=== PATIENT | female | born 1950 | race African-American/Black ===

== ENCOUNTER 2017-01-16 11:40 | Emergency (ER) | payer MEDICARE ==
[2017-01-16 11:46] VITALS: BMI 31.8
--- NOTE | 2017-01-16 12:05 | PDOC ---
History of Present Illness - General Chief Complaint: Asthma Stated Complaint: ASTHMA ATTACK Time Seen by Provider: 01/16/17 12:00 History Source: Patient Exam Limitations: No Limitations - History of Present Illness Initial Comments: 01/16/17 12:02 CHIEF COMPLAINT: Shortness of breath HISTORY OF PRESENT ILLNESS: This is a 66 year old female with a history of asthma and COPD (on albuterol MDI and Symbicort) who presents complaining of shortness of breath, wheezing, and cough productive of yellow sputum. Symptoms began about a month ago, and she was given a course of prednisone by her PCP which initially helped. Symptoms then recurred, and then she was given a course of Levaquin about 1.5 weeks ago, which she also completed. Former smoker, quit 35 years ago REVIEW OF SYSTEMS: GENERAL/CONSTITUTIONAL: No fever or chills. No weakness. No weight change. HEAD, EYES, EARS, NOSE AND THROAT: No change in vision. No ear pain or discharge. No sore throat. CARDIOVASCULAR: No chest pain or palpitations. RESPIRATORY: No cough, wheezing, or shortness of breath. GASTROINTESTINAL: No nausea, vomiting, diarrhea or constipation. GENITOURINARY: No dysuria, frequency, or change in urination. MUSCULOSKELETAL: No joint or muscle swelling or pain. No neck or back pain. SKIN: No rash or easy bruising. NEUROLOGIC: No headache, vertigo, loss of consciousness, or loss of sensation. PSYCHIATRIC: No depression or anxiety. ENDOCRINE: No increased thirst. No abnormal weight change. HEMATOLOGIC/LYMPHATIC: No anemia, easy bleeding, or history of blood clots. ALLERGIC/IMMUNOLOGIC: No hives or skin allergy. No latex allergy. PHYSICAL EXAM: GENERAL: The patient is awake, alert, and fully oriented, in no acute distress. HEAD: Normal with no signs of trauma. ENT: Pupils equal, round and reactive to light, extraocular movements intact, sclera anicteric, conjunctiva clear. Neck supple. LUNGS: Clear to auscultation bilaterally. Normal excursion. No respiratory distress or use of accessory muscles. CV: RRR, S1/S2, no MRG. Cap refill < 2 sec. ABDOMEN: Soft, non-distended, non-tender. EXTREMITIES: Normal range of motion, no edema. NEUROLOGICAL: Normal speech, normal gait. CN II-XII grossly intact. PSYCH: Normal mood, normal affect. SKIN: Warm, dry, normal turgor, no rashes or lesions noted. Past History - Past Medical History Allergies/Adverse Reactions: Allergies Allergy/AdvReac Type Severity Reaction Status Date / Time Penicillins Allergy Swelling Verified 01/16/17 11:42 Sulfa (Sulfonamide Allergy Swelling Verified 01/16/17 11:42 Antibiotics) BEEF Allergy Uncoded 01/16/17 11:42 SHRIMP Allergy Uncoded 01/16/17 11:42 Home Medications: Ambulatory Orders Albuterol 0.083% Nebulizer Amanda [Ventolin 0.083% Nebulizer Soln -] 1 neb NEB Q4H #30 amp 03/22/16 Montelukast Na [Singulair -] 10 mg PO HS #0 tablet 03/22/16 Budesonide/Formeterol Fumarate [SYMBICORT 160/4.5mcg -] 1 inh PO BID 01/16/17 Asthma: Yes COPD: Yes - Surgical History Abdominal Surgery: Yes (ovarian sx) - Immunization History Immunization Up to Date: Yes - Psycho/Social/Smoking Cessation Hx Anxiety: No Suicidal Ideation: No Smoking History: Former smoker Have you smoked in the past 12 months: No Information on smoking cessation initiated: No Hx Alcohol Use: No Drug/Substance Use Hx: No Substance Use Type: None Hx Substance Use Treatment: No *Physical Exam - Vital Signs Last Vital Signs Temp Pulse Resp BP Pulse Ox 92 H 22 145/98 97 01/16/17 11:42 01/16/17 11:42 01/16/17 11:42 01/16/17 11:42 Medical Decision Making - Medical Decision Making 01/16/17 14:09 A/P: 66 year old female with asthma exacerbation and possible superimposed bronchitis vs. PNA. 1. DuoNeb followed by albuterol nebs 2. Solu-Medrol 125mg IVP 3. CXR 4. Re-assess CXR: No infiltrate Patient re-evaluated and wheezing resolved, feels better and would like to go home. Followup instructions and return precautions reviewed. *DC/Admit/Observation/Transfer Diagnosis at time of Disposition: Bronchitis, COPD exacerbation - Discharge Dispostion Disposition: HOME Condition at time of disposition: Stable Admit: No - Referrals Referrals: Nora Phelan MD [Staff Physician] - - Patient Instructions Printed Discharge Instructions: DI for Chronic Obstructive Pulmonary Disease, DI for Acute Bronchitis Additional Instructions: -Continue using your albuterol nebulizer -Add Medrol and Azithromycin as prescribed -Follow up with Dr. Phelan this week -Return for difficulty breathing or any other concerning symptoms
[2017-01-16] MEDS ORDERED: ALBUTEROL SO4 2.5/IPRATROPIUM 0.5 INH SOL 3 ML VIAL.NEB. NEB ONE ×2 (12:10→12:16)
[2017-01-16] MEDS ORDERED: methylPREDNISolone NA SUCC 125 MG/2 ML VIAL IVPB ONE (12:10)
[2017-01-16] MEDS ORDERED: methylPREDNISolone NA SUCC 125 MG/2 ML VIAL ONE (12:28)
[2017-01-16] MEDS: ALBUTEROL SO4 0.083% IH SOL 2.5 MG/3 ML VIAL.NEB. NEB SCH ×4 (12:30→13:16)
[2017-01-16] MEDS ORDERED: ALBUTEROL SO4 0.083% IH SOL 2.5 MG/3 ML VIAL.NEB. NEB ONE (12:32)
[2017-01-16 14:22] VITALS: BP 123/74; PULSE 84
== END 2017-01-16 14:23 | disposition home or self-care (01) ==
LOC: JER 11:40
PROC: 3E0F7GC Introduction of Other Therapeutic Substance into Respiratory Tract, Via Natural or Artificial Opening (ICD-10-PCS; principal; 2017-01-16)
PROC: 3E0F7GC Introduction of Other Therapeutic Substance into Respiratory Tract, Via Natural or Artificial Opening (ICD-10-PCS; 2017-01-16)
PROC: 3E0333Z Introduction of Anti-inflammatory into Peripheral Vein, Percutaneous Approach (ICD-10-PCS; 2017-01-16)
DX: R06.02 Shortness of breath (principal); J44.1 Chronic obstructive pulmonary disease with (acute) exacerbation; J20.9 Acute bronchitis, unspecified
CPT/HCPCS: 71020-TC; 94640; 96374; 99282-25

== ENCOUNTER 2017-02-20 11:12 | Emergency (ER) | payer MEDICARE ==
[2017-02-20 11:31] VITALS: BMI 31.8
--- NOTE | 2017-02-20 11:39 | PDOC ---
History of Present Illness - General History Source: Patient Exam Limitations: No Limitations - History of Present Illness Initial Comments: 02/20/17 11:57 The patient is a 66 year old female with a significant PMHx of COPD, asthma who presents to the ED with coughing and SOB today. 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 The classroom across the cortes was burning incense and she began coughing and experienced SOB. She reports that she went back to her classroom and used her albuterol pump, but could not get it under control. She reports that at the time , she had chest tightness, and was coughing up cloudy white phlegm. She reports that she has had similar symptoms multiple times, the last time being about 2 months ago because of the heat. She currently denies chest pain, nausea, vomiting but she reports slight SOB still. She also reports intermittent lower leg swelling for the past 2 years. After her last hospitalization, her doctor told her to see a residential fee appraiser to be sure there were no cardiac issues. Her appointment is next month. PCP: Dr. Phelan Preventive Maintenance Engineer: Dr. Emmanuel Allergies: penicillin, sulfa <Florina Meyers - Last Filed: 02/20/17 13:59> <Greg Dow - Last Filed: 02/20/17 14:50> - General Stated Complaint: SOB Past History <Florina Meyers - Last Filed: 02/20/17 13:59> - Past Medical History Asthma: Yes COPD: Yes - Surgical History Abdominal Surgery: Yes (ovarian sx) - Immunization History Immunization Up to Date: Yes - Psycho/Social/Smoking Cessation Hx Anxiety: No Suicidal Ideation: No Smoking History: Former smoker Have you smoked in the past 12 months: No Information on smoking cessation initiated: No Hx Alcohol Use: No Drug/Substance Use Hx: No Substance Use Type: None Hx Substance Use Treatment: No <Greg Dow - Last Filed: 02/20/17 14:50> - Past Medical History Allergies/Adverse Reactions: Allergies Allergy/AdvReac Type Severity Reaction Status Date / Time Penicillins Allergy Swelling Verified 02/20/17 11:14 Sulfa (Sulfonamide Allergy Swelling Verified 02/20/17 11:14 Antibiotics) BEEF Allergy Uncoded 02/20/17 11:14 SHRIMP Allergy Uncoded 02/20/17 11:14 Home Medications: Ambulatory Orders Albuterol 0.083% Nebulizer Amanda [Ventolin 0.083% Nebulizer Soln -] 1 neb NEB Q4H #30 amp 03/22/16 Budesonide/Formeterol Fumarate [SYMBICORT 160/4.5mcg -] 1 inh PO BID 01/16/17 Albuterol Sulfate Inhaler - [Ventolin HFA Inhaler -] 1 - 2 inh PO Q4H #1 inhaler 02/20/17 Azithromycin [Zithromax -] 250 mg PO DAILY #10 tab 02/20/17 Methylprednisolone [Medrol Dose Eugenio] 4 mg PO ASDIR #21 tablet 02/20/17 Methylprednisolone [Medrol Dose Eugenio] 10 mg PO ASDIR 02/20/17 Review of Systems - Review of Systems Able to Perform ROS?: Yes Comments:: 02/20/17 11:57 GENERAL/CONSTITUTIONAL: No fever or chills. No weakness. HEAD, EYES, EARS, NOSE AND THROAT: No change in vision. No ear pain or discharge. No sore throat. CARDIOVASCULAR: (+) chest tightness, shortness of breath, lower leg swelling. RESPIRATORY: (+) cough, No wheezing, or hemoptysis. GASTROINTESTINAL: No nausea, vomiting, diarrhea or constipation. GENITOURINARY: No dysuria, frequency, or change in urination. MUSCULOSKELETAL: No joint or muscle swelling or pain. No neck or back pain. SKIN: No rash NEUROLOGIC: No headache, vertigo, loss of consciousness, or change in strength/ sensation. ENDOCRINE: No increased thirst. No abnormal weight change. HEMATOLOGIC/LYMPHATIC: No anemia, easy bleeding, or history of blood clots. ALLERGIC/IMMUNOLOGIC: No hives or skin allergy. <Florina Meyers - Last Filed: 02/20/17 13:59> *Physical Exam - Vital Signs Last Vital Signs Temp Pulse Resp BP Pulse Ox 97.7 F 78 22 147/89 97 02/20/17 11:15 02/20/17 11:46 02/20/17 11:15 02/20/17 11:15 02/20/17 11:46 - Physical Exam Comments: 02/20/17 11:57 GENERAL: Awake, alert, and fully oriented, in no acute distress HEAD: No signs of trauma EYES: PERRLA, EOMI, sclera anicteric, conjunctiva clear ENT: Auricles normal inspection, hearing grossly normal, nares patent, oropharynx clear without exudates. Moist mucosa NECK: Normal ROM, supple, no lymphadenopathy, JVD, or masses LUNGS: Breath sounds equal, clear to auscultation bilaterally. No wheezes, and no crackles HEART: Regular rate and rhythm, normal S1 and S2, no murmurs, rubs or gallops ABDOMEN: Soft, nontender, normoactive bowel sounds. No guarding, no rebound. No masses EXTREMITIES: Normal range of motion, no edema. No clubbing or cyanosis. No cords, erythema, or tenderness NEUROLOGICAL: Cranial nerves II through XII grossly intact. Normal speech, normal gait SKIN: Warm, Dry, normal turgor, no rashes or lesions noted. <Florina Meyers - Last Filed: 02/20/17 13:59> - Vital Signs Last Vital Signs Temp Pulse Resp BP Pulse Ox 97.7 F 78 22 147/89 100 02/20/17 11:15 02/20/17 11:15 02/20/17 11:15 02/20/17 11:15 02/20/17 11:15 <Greg Dow - Last Filed: 02/20/17 14:50> Heart Score/ECG Review #1 02/20/17 13:59 Normal sinus rhythm at 65 bpm. Possible left atrial enlargement. Septal infarct , age undetermined. <Florina Meyers - Last Filed: 02/20/17 13:59> ED Treatment Course - LABORATORY CBC & Chemistry Diagram: 02/20/17 12:23 02/20/17 12:23 - RADIOLOGY Radiograph Interpretation: 02/20/17 13:26 Chest X-Ray Reported by: Dr. Yadiel Uriarte Impressiono: No evidence of active pulmonary disease. <Florina Meyers - Last Filed: 02/20/17 13:59> - LABORATORY CBC & Chemistry Diagram: 02/20/17 12:23 02/20/17 12:23 <Greg Dow - Last Filed: 02/20/17 14:50> *DC/Admit/Observation/Transfer - Attestations Scribe Attestion: 02/20/17 11:57 Documentation prepared by Florina Meyers, acting as medical office administrator for Greg Dow DO. <Florina Meyers - Last Filed: 02/20/17 13:59> - Discharge Dispostion Admit: No - Attestations Physician Attestion: 02/20/17 11:39 I, Dr. Greg Dow, attest that this document has been prepared under my direction and personally reviewed by me in its entirety. I further attest, that it accurately reflects all work, treatment, procedures and medical decision -making performed by me. <Greg Dow - Last Filed: 02/20/17 14:50> Diagnosis at time of Disposition: COPD (chronic obstructive pulmonary disease) with acute bronchitis - Discharge Dispostion Condition at time of disposition: Good - Prescriptions Prescriptions: Methylprednisolone [Medrol Dose Eugenio] 4 mg PO ASDIR #21 tablet Albuterol Sulfate Inhaler - [Ventolin HFA Inhaler -] 1 - 2 inh PO Q4H #1 inhaler Azithromycin [Zithromax -] 250 mg PO DAILY #10 tab - Referrals Referrals: Nora Phelan MD [Primary Care Provider] - - Patient Instructions Printed Discharge Instructions: DI for Acute Bronchitis Additional Instructions: Mrs Enamorado- Use the inhaler as needed, return to us if worse, see your doctor next week. Best- Dr. Greg Dow
[2017-02-20] MEDS ORDERED: ALBUTEROL SO4 2.5/IPRATROPIUM 0.5 INH SOL 3 ML VIAL.NEB. NEB ONE ×2 (11:56→12:11)
[2017-02-20] MEDS ORDERED: ALBUTEROL SO4 0.083% IH SOL 2.5 MG/3 ML VIAL.NEB. NEB ONE ×2 (11:56→12:11)
[2017-02-20] MEDS ORDERED: methylPREDNISolone NA SUCC 125 MG/2 ML VIAL IVPB ONE (11:56)
[2017-02-20] MEDS ORDERED: methylPREDNISolone NA SUCC 125 MG/2 ML VIAL ONE (12:12)
[2017-02-20 12:37] LABS: BASOPHIL 0.2 % (0-2.0); MCH 27.5 pg (25.7-33.7); MCHC 32.8 g/dl (32.0-36.0); MEAN CELL VOLUME 83.8 fl (80-96); MEAN PLT VOLUME 8.7 fl (7.5-11.1); NEUTROPHILS 44.3 % (42.8-82.8); PLATELET COUNT 254 K/MM3 (134-434); RDW 14.4 % (11.6-15.6); WHITE BLOOD COUNT 9.5 K/mm3 (4.0-10.0)
[2017-02-20 12:49] LABS: INR 1.04 (0.82-1.09); PROTHROMBIN TIME (PATIENT) 11.4 SEC (9.98-11.88)
[2017-02-20 13:00] LABS: ALBUMIN 3.1 g/dl (3.4-5.0); ANION GAP 4 (8-16); BILIRUBIN,TOTAL 0.5 mg/dL (0.2-1.0); CALCIUM 8.9 mg/dL (8.5-10.1); CO2 36 mmol/L (21-32); CREATININE 0.8 mg/dL (0.55-1.02); GLUCOSE,RANDOM 91 mg/dL (74-106); SGPT/ALT 51 U/L (12-78); TOT PROT 6.6 g/dl (6.4-8.2)
[2017-02-20 13:02] LABS: ALK PHOS 156 U/L (45-117); TROPONIN I < 0.02 ng/ml (0.00-0.05)
[2017-02-20 13:08] LABS: SGOT/AST 42 U/L (15-37)
[2017-02-20 15:04] VITALS: BP 144/78; PULSE 80; TEMP 98.4
--- NOTE | 2017-02-21 20:56 | EKG ---
Test Reason : Blood Pressure : / mmHG Vent. Rate : 065 BPM Atrial Rate : 065 BPM P-R Int : 126 ms QRS Dur : 078 ms QT Int : 422 ms P-R-T Axes : 055 036 028 degrees QTc Int : 438 ms NORMAL SINUS RHYTHM POSSIBLE LEFT ATRIAL ENLARGEMENT SLOW R WAVE PROGRESSION V1-V3 PROLONGED QTC NONSPECIFIC T WAVE ABNORMALITY ABNORMAL ECG WHEN COMPARED WITH ECG OF 17-MAR-2016 10:16, NONSPECIFIC T WAVE ABNORMALITY NOW EVIDENT IN ANTERIOR LEADS REPEAT EKG IF CLINICALLY INDICATED Confirmed by MAGALIS DOWD MD ([id number]) on 02/21/2017 8:56:43 PM Referred By: Confirmed By:MAGALIS DOWD MD
== END 2017-02-20 15:04 | disposition home or self-care (01) ==
LOC: JER 11:12
PROC: 3E0F7GC Introduction of Other Therapeutic Substance into Respiratory Tract, Via Natural or Artificial Opening (ICD-10-PCS; principal; 2017-02-20)
PROC: 3E0F7GC Introduction of Other Therapeutic Substance into Respiratory Tract, Via Natural or Artificial Opening (ICD-10-PCS; 2017-02-20)
PROC: 3E0333Z Introduction of Anti-inflammatory into Peripheral Vein, Percutaneous Approach (ICD-10-PCS; 2017-02-20)
DX: J44.1 Chronic obstructive pulmonary disease with (acute) exacerbation (principal); J20.9 Acute bronchitis, unspecified
CPT/HCPCS: 36415; 71020-TC; 80053; 82550; 83880; 84484; 85025; 85610; 93005; 93010; 94640; 96374; 99285-25

== ENCOUNTER 2017-07-30 11:54 | Emergency (ER) | payer MEDICARE, OTHER ==
--- NOTE | 2017-07-30 12:03 | PDOC ---
History of Present Illness - General Chief Complaint: Asthma Stated Complaint: SOB Time Seen by Provider: 07/30/17 12:00 History Source: Patient - History of Present Illness Initial Comments: 07/30/17 12:14 The patient is a 66 year old female with a significant PMHx of COPD, asthma who presents to the ED by ambulance after experiencing shortness of breath while outside cleaning the snow off her car. She then asked a passerby to call an ambulance. Given 1 nebulizer in the ambulance, saturating at 100% the whole time.. Now feels better. 07/30/17 14:05 Past History - Past Medical History Allergies/Adverse Reactions: Allergies Allergy/AdvReac Type Severity Reaction Status Date / Time Penicillins Allergy Swelling Verified 07/30/17 12:36 Sulfa (Sulfonamide Allergy Swelling Verified 07/30/17 12:36 Antibiotics) BEEF Allergy Uncoded 07/30/17 12:36 SHRIMP Allergy Uncoded 07/30/17 12:36 Home Medications: Ambulatory Orders Albuterol 0.083% Nebulizer Amanda [Ventolin 0.083% Nebulizer Soln -] 1 neb NEB Q4H #30 amp 03/22/16 Budesonide/Formeterol Fumarate [SYMBICORT 160/4.5mcg -] 1 inh PO BID 01/16/17 Albuterol Sulfate Inhaler - [Ventolin HFA Inhaler -] 1 - 2 inh PO Q4H #1 inhaler 02/20/17 Azithromycin [Zithromax -] 250 mg PO DAILY #10 tab 02/20/17 Methylprednisolone [Medrol Dose Eugenio] 4 mg PO ASDIR #21 tablet 02/20/17 Methylprednisolone [Medrol Dose Eugenio] 10 mg PO ASDIR 02/20/17 Methylprednisolone [Medrol Dose Eugenio] 4 mg PO ASDIR #21 tablet 07/30/17 Asthma: Yes COPD: Yes - Surgical History Abdominal Surgery: Yes (ovarian sx) - Immunization History Immunization Up to Date: Yes - Suicide/Smoking/Psychosocial Hx Smoking History: Former smoker Have you smoked in the past 12 months: No Hx Alcohol Use: No Drug/Substance Use Hx: No Substance Use Type: None Hx Substance Use Treatment: No Review of Systems - Review of Systems Able to Perform ROS?: Yes Is the patient limited Lithuanian proficient: No Constitutional: No: Symptoms Reported HEENTM: No: Symptoms Reported Respiratory: Yes: Cough, Shortness of Breath. No: Wheezing Cardiac (ROS): No: Symptoms Reported ABD/GI: Yes: Diarrhea : No: Symptoms Reported Musculoskeletal: No: Symptoms Reported Integumentary: No: Symptoms Reported Neurological: No: Symptoms reported Endocrine: No: Symptoms Reported All Other Systems: Reviewed and Negative *Physical Exam - Physical Exam General Appearance: Yes: Nourished, Appropriately Dressed, Apparent Distress HEENT: positive: EOMI, THEO, Normal ENT Inspection Neck: positive: Trachea midline. negative: Tender Respiratory/Chest: positive: Lungs Clear, Normal Breath Sounds. negative: Chest Tender, Wheezing Cardiovascular: positive: Regular Rhythm, Regular Rate, S1, S2 Vascular Pulses: Dorsalis-Pedis (R): 2+, Doralis-Pedis (L): 2+ Gastrointestinal/Abdominal: positive: Normal Bowel Sounds, Flat, Soft. negative : Tender Musculoskeletal: positive: Normal Inspection Extremity: positive: Normal Capillary Refill, Normal Inspection Neurologic: positive: Fully Oriented, Normal Mood/Affect Medical Decision Making - Medical Decision Making 07/30/17 14:01 Given treatment of duoneb and 60mg prednisone in the Er. No wheezes. Coughing resolved Ok to be discharged. *DC/Admit/Observation/Transfer Diagnosis at time of Disposition: Asthma attack - Discharge Dispostion Disposition: HOME Admit: No - Prescriptions Prescriptions: Methylprednisolone [Medrol Dose Eugenio] 4 mg PO ASDIR #21 tablet - Referrals - Patient Instructions Printed Discharge Instructions: Asthma -- Adult Additional Instructions: Come back to the Emergency Department for any new, concerning or worsening symptoms. Follow up with your primary doctor August 01 2017 - Post Discharge Activity
[2017-07-30] MEDS ORDERED: ALBUTEROL SO4 2.5/IPRATROPIUM 0.5 INH SOL 3 ML VIAL.NEB. NEB ONE (12:30)
[2017-07-30 12:36] VITALS: TEMP 97.6; BMI 32.5
[2017-07-30] MEDS ORDERED: predniSONE 20 MG TABLET (UD) PO ONE (12:42)
[2017-07-30] MEDS ORDERED: predniSONE 20 MG TABLET (UD) ONE (12:49)
[2017-07-30 14:11] VITALS: BP 127/77; PULSE 81
== END 2017-07-30 14:12 | disposition home or self-care (01) ==
LOC: JER 11:54
PROC: 3E0F7GC Introduction of Other Therapeutic Substance into Respiratory Tract, Via Natural or Artificial Opening (ICD-10-PCS; principal; 2017-07-30)
DX: J45.901 Unspecified asthma with (acute) exacerbation (principal); J44.9 Chronic obstructive pulmonary disease, unspecified; Z87.891 Personal history of nicotine dependence
CPT/HCPCS: 71010-TC; 94640; 99281-25

== ENCOUNTER 2019-04-08 10:51 | Emergency (ER) | payer MEDICARE, OTHER ==
[2019-04-08 11:21] VITALS: BP 157/93; PULSE 66; TEMP 98.4; BMI 31.8
[2019-04-08] MEDS ORDERED: KETOROLAC TROMETHAMINE 60 MG/2 ML VIAL IM ONE (12:48)
[2019-04-08] MEDS ORDERED: KETOROLAC TROMETHAMINE 60 MG/2 ML VIAL ONE (12:49)
--- NOTE | 2019-04-08 12:54 | PDOC ---
History of Present Illness - General Chief Complaint: Pain, Acute Stated Complaint: LT SHOULER PAIN NUMBNESS DOWN THE ARM Time Seen by Provider: 04/08/19 11:59 - History of Present Illness Initial Comments: 04/08/19 12:49 68 y/o F with a PMH of HTN and COPD presents for evaluation of L sided neck pain with l UE radicular symptoms. No systemic symptoms Past History - Past Medical History Allergies/Adverse Reactions: Allergies Allergy/AdvReac Type Severity Reaction Status Date / Time Penicillins Allergy Swelling Verified 04/08/19 11:24 Sulfa (Sulfonamide Allergy Swelling Verified 04/08/19 11:24 Antibiotics) BEEF Allergy Uncoded 04/08/19 11:24 SHRIMP Allergy Uncoded 04/08/19 11:24 Home Medications: Ambulatory Orders Albuterol 0.083% Nebulizer Amanda [Ventolin 0.083% Nebulizer Soln -] 1 neb NEB Q4H #30 amp 03/22/16 Budesonide/Formeterol Fumarate [SYMBICORT 160/4.5mcg -] 1 inh PO BID 01/16/17 Albuterol Sulfate Inhaler - [Ventolin HFA Inhaler -] 1 - 2 inh PO Q4H #1 inhaler 02/20/17 Azithromycin [Zithromax -] 250 mg PO DAILY #10 tab 02/20/17 Methylprednisolone [Medrol Dose Eugenio] 4 mg PO ASDIR #21 tablet 02/20/17 Methylprednisolone [Medrol Dose Eugenio] 10 mg PO ASDIR 02/20/17 Methylprednisolone [Medrol Dose Eugenio] 4 mg PO ASDIR #21 tablet 07/30/17 Cyclobenzaprine HCl [Flexeril 10 mg] 10 mg PO HS PRN #10 tablet 04/08/19 Asthma: Yes COPD: Yes HTN: Yes - Surgical History Abdominal Surgery: Yes (ovarian sx) - Immunization History Immunization Up to Date: Yes - Suicide/Smoking/Psychosocial Hx Smoking History: Never smoked Have you smoked in the past 12 months: No Hx Alcohol Use: No Drug/Substance Use Hx: No Substance Use Type: None Hx Substance Use Treatment: No Review of Systems - Review of Systems Musculoskeletal: Yes: Neck Pain *Physical Exam - Vital Signs Last Vital Signs Temp Pulse Resp BP Pulse Ox 98.4 F 66 16 157/93 98 04/08/19 11:18 04/08/19 11:18 04/08/19 11:18 04/08/19 11:18 04/08/19 11:18 - Physical Exam Comments: 04/08/19 12:53 Cervical spine skin color and temperature are normal; range of motion decreased. 5 out of 5 strength bilateral upper extremities. There is no midline tenderness, there is moderate bilateral paracervical muscular spasm and tenderness. NVID free of any gross sensory or motor deficits Positive Spuruling maneuver producing L UE radicular symptoms Medical Decision Making - Medical Decision Making 04/08/19 12:54 Pt already on prednisone for COPD, will treat with Flexeril for spasm and have her f.u w neurosurgery. *DC/Admit/Observation/Transfer Diagnosis at time of Disposition: Cervical radiculopathy - Discharge Dispostion Disposition: HOME Condition at time of disposition: Stable Decision to Admit order: No - Referrals Referrals: Nora Phelan MD [Primary Care Provider] - Teofilo Morris MD, FAANS [Staff Physician] - - Patient Instructions Additional Instructions: Please take the muscle relaxer as directed. One tablet before bed, it will make you sleepy. Return to the emergency room should symptoms worsen and follow up with neurosurgery without fail in 1-2 days for further evaluation and treatment options. You may take Tylenol as directed for additional pain control. - Post Discharge Activity
--- NOTE | 2019-04-10 11:09 | EKG ---
Test Reason : Blood Pressure : / mmHG Vent. Rate : 065 BPM Atrial Rate : 065 BPM P-R Int : 128 ms QRS Dur : 078 ms QT Int : 426 ms P-R-T Axes : 069 014 040 degrees QTc Int : 443 ms NORMAL SINUS RHYTHM POSSIBLE LEFT ATRIAL ENLARGEMENT NONSPECIFIC T WAVE ABNORMALITY ABNORMAL ECG WHEN COMPARED WITH ECG OF 20-FEB-2017 12:13, NO SIGNIFICANT CHANGE WAS FOUND Confirmed by LITA OJEDA, KRISTINE ([id number]) on 04/10/2019 11:09:36 AM Referred By: Confirmed By:KRISTINE LONDON MD
== END 2019-04-08 13:15 | disposition home or self-care (01) ==
LOC: JERFT 10:51
PROC: 3E0233Z Introduction of Anti-inflammatory into Muscle, Percutaneous Approach (ICD-10-PCS; principal; 2019-04-08)
DX: M54.12 Radiculopathy, cervical region (principal); I10 Essential (primary) hypertension; J44.9 Chronic obstructive pulmonary disease, unspecified
CPT/HCPCS: 93005; 93010; 96372; 99281-25

== ENCOUNTER 2020-08-27 17:40 | Emergency (ER) | payer MEDICARE, OTHER ==
[2020-08-27 17:50] VITALS: BP 145/83; PULSE 88; BMI 32.2
[2020-08-27] MEDS ORDERED: KETOROLAC TROMETHAMINE 30 MG/1 ML VIAL IM ONE (18:13)
[2020-08-27] MEDS ORDERED: METHOCARBAMOL 500 MG TABLET PO ONE (18:13)
[2020-08-27] MEDS ORDERED: KETOROLAC TROMETHAMINE 30 MG/1 ML VIAL ONE (18:14)
[2020-08-27] MEDS ORDERED: METHOCARBAMOL 500 MG TABLET ONE (18:14)
== END 2020-08-27 18:58 | disposition home or self-care (01) ==
LOC: JERFT 17:40
PROC: 3E0233Z Introduction of Anti-inflammatory into Muscle, Percutaneous Approach (ICD-10-PCS; principal; 2020-08-27)
DX: M54.5 Low back pain (principal)
CPT/HCPCS: 72070-TC-FY; 96372; 99284-25

== ENCOUNTER 2021-04-06 14:11 | Emergency (ER) | payer MEDICARE, OTHER ==
[2021-04-06 14:21] VITALS: BP 171/95; PULSE 72; TEMP 98.1; BMI 32.2
[2021-04-06 16:36] LABS: BASO % 1.3 % (0-2.0); EOS % 5.4 % (0-4.5); HEMATOCRIT 44.6 % (32.4-45.2); HEMOGLOBIN 14.8 GM/dL (10.7-15.3); LYMPH % 41.5 % (8-40); MCH 28.5 pg (25.7-33.7); MCHC 33.1 g/dl (32.0-36.0); MEAN CELL VOLUME 86.2 fl (80-96); MEAN PLT VOLUME 8.4 fl (7.5-11.1); MONO % 7.1 % (3.8-10.2); NEUT % 44.7 % (42.8-82.8); PLATELET COUNT 270 10^3/uL (134-434); RBC 5.18 M/mm3 (3.60-5.2); RDW 14.6 % (11.6-15.6); WHITE BLOOD COUNT 11.6 K/mm3 (4.0-10.0)
[2021-04-06 16:43] LABS: INR 0.92 (0.83-1.09); PROTHROMBIN TIME (PATIENT) 11.2 SEC (9.7-13.0)
[2021-04-06 16:46] LABS: ACTIVATED PTT 27.6 SECONDS (25.2-36.5)
[2021-04-06 16:56] LABS: CALCIUM 8.9 mg/dL (8.5-10.1)
[2021-04-06 16:57] LABS: ALBUMIN 3.2 g/dl (3.4-5.0); BLOOD UREA NITROGEN 10.8 mg/dL (7-18)
[2021-04-06 17:00] LABS: CREATININE 0.8 mg/dL (0.55-1.3)
[2021-04-06 17:01] LABS: BILIRUBIN,TOTAL 0.7 mg/dL (0.2-1)
[2021-04-06 17:04] LABS: N-TERMINAL BNP 61.4 pg/ml (5-125)
== END 2021-04-06 17:46 | disposition home or self-care (01) ==
LOC: JER 14:11
DX: R04.2 Hemoptysis (principal); R07.9 Chest pain, unspecified
CPT/HCPCS: 36415; 71045-TC-FY; 80053; 82550; 83880; 84484; 85025; 85379; 85610; 85730; 93005; 93010; 93970-TC; 99285-25; C9803; U0003; U0005

== ENCOUNTER 2021-04-07 19:21 | Emergency (ER) | payer MEDICARE, OTHER ==
[2021-04-07 19:56] VITALS: TEMP 98.1; BMI 32.2
[2021-04-07 21:25] LABS: BASO % 1.7 % (0-2.0); EOS % 6.2 % (0-4.5); HEMATOCRIT 49.7 % (32.4-45.2); HEMOGLOBIN 16.5 GM/dL (10.7-15.3); LYMPH % 37.4 % (8-40); MCH 28.3 pg (25.7-33.7); MCHC 33.3 g/dl (32.0-36.0); MEAN CELL VOLUME 85.2 fl (80-96); NEUT % 48.7 % (42.8-82.8); PLATELET COUNT 292 10^3/uL (134-434); RBC 5.83 M/mm3 (3.60-5.2); RDW 14.4 % (11.6-15.6); WHITE BLOOD COUNT 10.6 K/mm3 (4.0-10.0)
[2021-04-07 21:53] LABS: CALCIUM 9.9 mg/dL (8.5-10.1)
[2021-04-07 21:54] LABS: BLOOD UREA NITROGEN 10.6 mg/dL (7-18)
[2021-04-07 21:57] LABS: BILIRUBIN,TOTAL 0.7 mg/dL (0.2-1); TOT PROT 8.5 g/dl (6.4-8.2)
[2021-04-07 22:06] LABS: ALBUMIN 3.9 g/dl (3.4-5.0)
[2021-04-07] MEDS ORDERED: SODIUM CHLORIDE 1,000 ML IV STA (22:14)
[2021-04-08 00:25] VITALS: BP 163/82; PULSE 67
== END 2021-04-08 00:26 | disposition home or self-care (01) ==
LOC: JER 19:21
PROC: 3E0337Z Introduction of Electrolytic and Water Balance Substance into Peripheral Vein, Percutaneous Approach (ICD-10-PCS; principal; 2021-04-07)
DX: R04.2 Hemoptysis (principal)
CPT/HCPCS: 36415; 71275-TC; 80053; 85025; 99284-25; Q9967

== ENCOUNTER 2022-01-31 14:13 | Emergency (ER) | payer OTHER ==
[2022-01-31 14:18] VITALS: BP 156/87; PULSE 86; TEMP 98.4; BMI 31.8
[2022-01-31] MEDS ORDERED: DEXAMETHASONE LIQUID 0.5 MG/5 ML PO ONE (15:01)
[2022-01-31] MEDS ORDERED: FAMOTIDINE 20 MG TABLET PO ONE (15:02)
[2022-01-31] MEDS ORDERED: FAMOTIDINE 20 MG TABLET ONE (15:06)
[2022-01-31] MEDS ORDERED: DEXAMETHASONE SOD PHOSPHATE 10 MG/1 ML VIAL ONE (15:07)
== END 2022-01-31 15:23 | disposition home or self-care (01) ==
LOC: JERFT 14:13
DX: S50.862A Insect bite (nonvenomous) of left forearm, initial encounter (principal); W57.XXXA Bitten or stung by nonvenomous insect and other nonvenomous arthropods, initial encounter
CPT/HCPCS: 99283-25

== ENCOUNTER 2022-07-17 13:30 | Emergency (ER) | payer MEDICARE, OTHER ==
[2022-07-17 13:40] VITALS: PULSE 72; RESP 18; TEMP 98.2; BMI 30.1
[2022-07-17 16:45] VITALS: BP 170/85
== END 2022-07-17 16:45 | disposition home or self-care (01) ==
LOC: JER 13:30
DX: S93.492A Sprain of other ligament of left ankle, initial encounter (principal); S70.01XA Contusion of right hip, initial encounter; W10.8XXA Fall (on) (from) other stairs and steps, initial encounter
CPT/HCPCS: 70450-TC; 72125-TC; 73502-TC-RT-FY; 73610-TC-LT-FY; 73630-TC-LT; 99285-25

== ENCOUNTER 2022-09-16 12:16 | Observation (INO) | payer OTHER ==
[2022-09-16] MEDS ORDERED: LIDOCAINE 5% TOPICAL PATCH TP ONE (14:11)
[2022-09-16] MEDS ORDERED: ACETAMINOPHEN 325 MG TABLET (FP) PO ONE ×2 (14:11→18:57)
[2022-09-16] MEDS ORDERED: LIDOCAINE 5% TOPICAL PATCH ONE (14:46)
[2022-09-16] MEDS ORDERED: ACETAMINOPHEN 325 MG TABLET (FP) ONE ×2 (14:46→19:02)
[2022-09-16 15:44] LABS: BASO % 0.5 % (0-2.0); EOS % 0.4 % (0-4.5); HEMATOCRIT 41.1 % (32.4-45.2); HEMOGLOBIN 13.8 GM/dL (10.7-15.3); LYMPH % 25.1 % (8-40); MCH 29.2 pg (25.7-33.7); MCHC 33.5 g/dl (32.0-36.0); MEAN CELL VOLUME 87.2 fl (80-96); MEAN PLT VOLUME 8.3 fl (7.5-11.1); MONO % 12.7 % (3.8-10.2); NEUT % 61.3 % (42.8-82.8); PLATELET COUNT 308 10^3/uL (134-434); RBC 4.71 M/mm3 (3.60-5.2); RDW 14.3 % (11.6-15.6); WHITE BLOOD COUNT 12.2 K/mm3 (4.0-10.0)
[2022-09-16 15:48] LABS: URINE APPEARANCE CLEAR; URINE BILIRUBIN NEGATIVE (NEGATIVE); URINE COLOR DK YELLOW; URINE GLUCOSE (UA) NEGATIVE (NEGATIVE); URINE KETONE 1+ (NEGATIVE); URINE LEUK ESTERASE NEGATIVE (NEGATIVE); URINE NITRITE NEGATIVE (NEGATIVE); URINE PROTEIN NEGATIVE (NEGATIVE)
[2022-09-16 16:10] LABS: BLOOD UREA NITROGEN 9.2 mg/dL (7-18); CALCIUM 9.1 mg/dL (8.5-10.1)
[2022-09-16 16:11] LABS: ALBUMIN 3.1 g/dl (3.4-5.0)
[2022-09-16 16:13] LABS: CREATININE 0.9 mg/dL (0.55-1.3)
[2022-09-16 16:15] LABS: BILIRUBIN,TOTAL 1.5 mg/dL (0.2-1); TOT PROT 7.2 g/dl (6.4-8.2)
[2022-09-16] MEDS ORDERED: LIDOCAINE PATCH REMOVAL MC SCH (22:00)
[2022-09-16] MEDS ORDERED: ACETAMINOPHEN 325 MG TABLET (FP) PO PRN (23:19)
[2022-09-17] MEDS ORDERED: ACETAMINOPHEN 325 MG TABLET (FP) ONE (03:05)
[2022-09-17 04:13] LABS: BILIRUBIN,DIRECT 0.7 mg/dL (0.0-0.2)
[2022-09-17 06:00] LABS: BASO % 1.3 % (0-2.0); EOS % 2.2 % (0-4.5); HEMATOCRIT 37.8 % (32.4-45.2); HEMOGLOBIN 12.9 GM/dL (10.7-15.3); LYMPH % 29.5 % (8-40); MCH 29.3 pg (25.7-33.7); MCHC 34.1 g/dl (32.0-36.0); MEAN PLT VOLUME 8.1 fl (7.5-11.1); MONO % 13.3 % (3.8-10.2); NEUT % 53.7 % (42.8-82.8); PLATELET COUNT 275 10^3/uL (134-434); WHITE BLOOD COUNT 9.8 K/mm3 (4.0-10.0)
[2022-09-17 06:23] LABS: MAGNESIUM 1.9 mg/dL (1.8-2.4)
[2022-09-17 06:24] LABS: CALCIUM 8.6 mg/dL (8.5-10.1)
[2022-09-17 06:25] LABS: ALBUMIN 2.7 g/dl (3.4-5.0); BLOOD UREA NITROGEN 10.4 mg/dL (7-18)
[2022-09-17 06:26] LABS: CREATININE 0.7 mg/dL (0.55-1.3)
[2022-09-17 06:27] LABS: BILIRUBIN,DIRECT 0.7 mg/dL (0.0-0.2)
[2022-09-17 06:28] LABS: PHOSPHOROUS 3.7 mg/dL (2.5-4.9)
[2022-09-17 06:29] LABS: BILIRUBIN,TOTAL 1.1 mg/dL (0.2-1)
[2022-09-17 07:25] LABS: ERYTHROCYTE SEDIMENTATION RATE 53 mm/hr (0-30)
[2022-09-17 09:05] LABS: ANISOCYTOSIS 0; HELMET CELLS 0; HOWELL-JOLLY BODIES 0; MACROCYTOSIS 0; OVALOCYTE 0; ROULEAU 0; SICKELED CELLS 0; TARGET CELLS 0; TEAR DROP CELLS 0; TOXIC GRANULATION 0
[2022-09-17] MEDS ORDERED: KETOROLAC TROMETHAMINE 15 MG/ML VIAL IVPUSH ONE (09:53)
[2022-09-17] MEDS: HYDROCHLOROTHIAZIDE 12.5 MG CAPSULE (FP) PO SCH (10:00)
[2022-09-17] MEDS: LOSARTAN POTASSIUM 50 MG TABLET PO SCH (10:00)
[2022-09-17] MEDS ORDERED: PATIENT'S OWN MEDICATION (NON-FORMULARY) (Telmisartan/Hydrochlorothiazid [Telmisartan-Hctz PO SCH (10:00)
[2022-09-17] MEDS: ACETAMINOPHEN 500 MG TABLET (FP) PO SCH ×2 (10:00→14:39)
[2022-09-17] MEDS: ENOXAPARIN NA (PORCINE) 40 MG/0.4 ML DISP.SYRIN SQ SCH (10:00)
[2022-09-17] MEDS: LIDOCAINE 5% TOPICAL PATCH TP SCH (10:00)
[2022-09-17] MEDS ORDERED: LOSARTAN POTASSIUM 50 MG TABLET ONE (10:00)
[2022-09-17] MEDS ORDERED: amLODIPine BESYLATE 5 MG TABLET (FP) ONE (10:00)
[2022-09-17] MEDS ORDERED: HYDROCHLOROTHIAZIDE 25 MG TABLET (FP) ONE (10:00)
[2022-09-17] MEDS: amLODIPine BESYLATE 5 MG TABLET (FP) PO SCH (10:00)
[2022-09-17] MEDS ORDERED: KETOROLAC TROMETHAMINE 15 MG/ML VIAL ONE (10:01)
[2022-09-17] MEDS ORDERED: LIDOCAINE 5% TOPICAL PATCH ONE (10:01)
[2022-09-17] MEDS ORDERED: ACETAMINOPHEN 500 MG TABLET (FP) ONE ×2 (10:02→14:34)
[2022-09-17] MEDS: TIOTROPIUM/OLODATEROL HCL (STIOLTO) 4 GM INHALER IH SCH (14:02)
[2022-09-17] MEDS ORDERED: LORazepam 1 MG TABLET ONE (14:33)
[2022-09-17] MEDS ORDERED: LORazepam 2 MG TABLET PO ONE (14:45)
[2022-09-17] MEDS ORDERED: LORazepam 1 MG TABLET PO ONE (14:45)
[2022-09-17] MEDS ORDERED: LIDOCAINE PATCH REMOVAL MC SCH (22:00)
[2022-09-18 00:52] VITALS: BMI 31.6
[2022-09-18] MEDS: ACETAMINOPHEN 500 MG TABLET (FP) PO SCH ×3 (00:55→13:56)
[2022-09-18] MEDS: LIDOCAINE 5% TOPICAL PATCH TP SCH (09:31)
[2022-09-18] MEDS: amLODIPine BESYLATE 5 MG TABLET (FP) PO SCH (09:32)
[2022-09-18] MEDS: LOSARTAN POTASSIUM 50 MG TABLET PO SCH ×2 (09:32→09:39)
[2022-09-18] MEDS: HYDROCHLOROTHIAZIDE 12.5 MG CAPSULE (FP) PO SCH ×2 (09:32→09:39)
[2022-09-18] MEDS: ENOXAPARIN NA (PORCINE) 40 MG/0.4 ML DISP.SYRIN SQ SCH (09:32)
[2022-09-18 09:41] LABS: BASO % 1.2 % (0-2.0); EOS % 4.2 % (0-4.5); HEMATOCRIT 39.1 % (32.4-45.2); HEMOGLOBIN 13.2 GM/dL (10.7-15.3); LYMPH % 31.8 % (8-40); MCH 29.3 pg (25.7-33.7); MCHC 33.8 g/dl (32.0-36.0); MEAN CELL VOLUME 86.9 fl (80-96); MEAN PLT VOLUME 7.5 fl (7.5-11.1); MONO % 7.2 % (3.8-10.2); NEUT % 55.6 % (42.8-82.8); PLATELET COUNT 308 10^3/uL (134-434); RDW 14.2 % (11.6-15.6)
[2022-09-18 10:12] LABS: ALBUMIN 2.7 g/dl (3.4-5.0); BLOOD UREA NITROGEN 11.9 mg/dL (7-18); CALCIUM 8.9 mg/dL (8.5-10.1)
[2022-09-18 10:15] LABS: CREATININE 0.8 mg/dL (0.55-1.3)
[2022-09-18 10:17] LABS: BILIRUBIN,TOTAL 0.7 mg/dL (0.2-1)
[2022-09-18] MEDS: TIOTROPIUM/OLODATEROL HCL (STIOLTO) 4 GM INHALER IH SCH (14:05)
[2022-09-18 14:27] VITALS: BP 121/80; PULSE 92; RESP 20; TEMP 97.7
== END 2022-09-18 16:45 | disposition home or self-care (01) ==
LOC: JER 12:16 → JERBED 21:27 → UNDOADMIN 21:50 → JERBED 21:50 → J5S 09-18 00:35
PROVIDERS: ADMIT Internal Medicine; ATTEND Internal Medicine
PROC: 3E0333Z Introduction of Anti-inflammatory into Peripheral Vein, Percutaneous Approach (ICD-10-PCS; principal; 2022-09-16)
DX: R26.2 Difficulty in walking, not elsewhere classified (principal); W10.9XXA Fall (on) (from) unspecified stairs and steps, initial encounter; Y93.89 Activity, other specified; Y92.89 Other specified places as the place of occurrence of the external cause; J44.9 Chronic obstructive pulmonary disease, unspecified; N94.9 Unspecified condition associated with female genital organs and menstrual cycle; I10 Essential (primary) hypertension; R77.8 Other specified abnormalities of plasma proteins; R00.2 Palpitations; Z91.013 Allergy to seafood; Z88.0 Allergy status to penicillin; Z91.018 Allergy to other foods
CPT/HCPCS: 0241U-QW; 36415; 72131-TC; 72148-TC; 72192-TC; 74177-TC; 76705-TC; 80053; 81003; 82248; 83690; 83735; 84100; 84484; 85025; 85651; 86140; 87086; 93005; 93010; 96374; 97116-GP; 97161-GP; 99285-25; G0378; J3535; Q9967

== ENCOUNTER 2023-06-26 13:43 | Emergency (ER) | payer OTHER ==
[2023-06-26 13:52] VITALS: BP 177/95; PULSE 81; RESP 18; TEMP 98.3; BMI 29.0
[2023-06-26] MEDS ORDERED: predniSONE 20 MG TABLET (UD) PO ONE (15:24)
[2023-06-26] MEDS ORDERED: ALBUTEROL SO4 2.5/IPRATROPIUM 0.5 INH SOL 3 ML VIAL.NEB. NEB ONE ×2 (15:24→15:52)
[2023-06-26] MEDS ORDERED: predniSONE 20 MG TABLET (UD) ONE (15:52)
[2023-06-26 16:06] LABS: BASO % 0.8 % (0-2.0); EOS % 7.4 % (0-4.5); HEMATOCRIT 42.5 % (32.4-45.2); HEMOGLOBIN 13.9 GM/dL (10.7-15.3); LYMPH % 43.9 % (8-40); MCH 28.1 pg (25.7-33.7); MCHC 32.8 g/dl (32.0-36.0); MEAN CELL VOLUME 85.6 fl (80-96); MEAN PLT VOLUME 8.1 fl (7.5-11.1); MONO % 10.3 % (3.8-10.2); NEUT % 37.6 % (42.8-82.8); PLATELET COUNT 316 10^3/uL (134-434); RBC 4.96 M/mm3 (3.60-5.2); RDW 13.9 % (11.6-15.6); WHITE BLOOD COUNT 7.1 K/mm3 (4.0-10.0)
[2023-06-26 16:30] LABS: POTASSIUM 3.7 mmol/L (3.5-5.1)
[2023-06-26 16:32] LABS: ALBUMIN 3.2 g/dl (3.4-5.0); BLOOD UREA NITROGEN 4.4 mg/dL (7-18); CALCIUM 9.1 mg/dL (8.5-10.1)
[2023-06-26 16:35] LABS: CREATININE 0.6 mg/dL (0.55-1.3)
[2023-06-26 16:37] LABS: BILIRUBIN,TOTAL 0.8 mg/dL (0.2-1)
[2023-06-26 16:40] LABS: N-TERMINAL BNP 133.9 pg/ml (5-125)
== END 2023-06-26 19:01 | disposition home or self-care (01) ==
LOC: JER 13:43
PROC: 3E0F7GC Introduction of Other Therapeutic Substance into Respiratory Tract, Via Natural or Artificial Opening (ICD-10-PCS; principal; 2023-06-26)
DX: R05.9 Cough, unspecified (principal); R09.89 Other specified symptoms and signs involving the circulatory and respiratory systems; R06.02 Shortness of breath; R06.7 Sneezing; R09.3 Abnormal sputum; J44.1 Chronic obstructive pulmonary disease with (acute) exacerbation; Z20.822 Contact with and (suspected) exposure to COVID-19
CPT/HCPCS: 0241U-QW; 36415; 71046-TC-FY; 80053; 83880; 84484; 85025; 93005; 93010; 93970-TC; 96374; 99285-25

== ENCOUNTER 2023-11-06 04:18 | Day surgery (SDC) | payer OTHER ==
[2023-11-03 09:36] VITALS: BMI 30.4
[2023-11-06 09:39] VITALS: TEMP 98.2
[2023-11-06 10:03] VITALS: RESP 19
[2023-11-06 10:06] VITALS: BP 135/70; PULSE 69
== END 2023-11-06 10:27 | disposition home or self-care (01) ==
LOC: JASU-ENDO 04:18
PROVIDERS: ATTEND Internal Medicine Gastroenterology
PROC: 0DBP8ZX Excision of Rectum, Via Natural or Artificial Opening Endoscopic, Diagnostic (ICD-10-PCS; principal; 2023-11-06 09:00)
DX: Z12.11 Encounter for screening for malignant neoplasm of colon (principal); D12.8 Benign neoplasm of rectum; K57.30 Diverticulosis of large intestine without perforation or abscess without bleeding; K64.8 Other hemorrhoids
CPT/HCPCS: 88305-TC